=== PATIENT | male | born 1945 | race Caucasian/White ===

== ENCOUNTER 2017-12-10 07:53 | Day surgery (SDC) | payer OTHER ==
[~2017-12-10 07:53] MED LIST: SODIUM CHLORIDE 0.9% 1000ML 1,000 ML IV ONE
[2017-12-10] MEDS ORDERED: PROPOFOL 10 MG/ML 20ML VIAL IV ONE ×2 (10:28)
[2017-12-10] MEDS ORDERED: FURO-152 PO (10:35)
[2017-12-10] MEDS ORDERED: ISOS10TA8 PO (10:35)
[2017-12-10] MEDS ORDERED: METF-526 PO (10:35)
[2017-12-10] MEDS ORDERED: LOSA50TA37 PO (10:35)
[2017-12-10] MEDS ORDERED: SUCR1TAB2 PO (10:35)
[2017-12-10] MEDS ORDERED: GABA-531 PO (10:35)
[2017-12-10] MEDS ORDERED: DEXL60CA3 PO (10:35)
[2017-12-10] MEDS ORDERED: PRAS10TA9 PO (10:35)
[2017-12-10] MEDS ORDERED: [UNRECOGNIZED DRUG - CODE] PO (10:35)
[2017-12-10] MEDS ORDERED: ALPR0.5T8 PO (10:35)
[2017-12-10] MEDS ORDERED: OMEG-53 PO (10:35)
[2017-12-10] MEDS ORDERED: METO-408 PO (10:35)
== END 2017-12-10 11:34 | disposition home or self-care (01) ==
LOC: DAH 07:53 → ENDO 07:53
PROVIDERS: ATTEND Internal Medicine
DX: K31.89 Other diseases of stomach and duodenum (principal); I10 Essential (primary) hypertension; E78.5 Hyperlipidemia, unspecified; I25.10 Atherosclerotic heart disease of native coronary artery without angina pectoris; F41.9 Anxiety disorder, unspecified; F32.9 Major depressive disorder, single episode, unspecified; E11.9 Type 2 diabetes mellitus without complications; K21.9 Gastro-esophageal reflux disease without esophagitis; Z90.49 Acquired absence of other specified parts of digestive tract; Z79.899 Other long term (current) drug therapy; Z98.890 Other specified postprocedural states; Z85.828 Personal history of other malignant neoplasm of skin; Z86.010 Personal history of colon polyps
CPT/HCPCS: 43235; 82948; 91035; 93005; A4606; A4649; J2704 ×2; J7030

== ENCOUNTER → 2021-01-03 | Outpatient (CLI) | payer MEDICARE ==
[~2021-01-03] MED LIST changes: +ALPR0.5T8 PO; +DEXL60CA3 PO; +FURO-152 PO; +GABA-531 PO; +ISOS10TA8 PO; +LOSA50TA64 PO; +METF-526 PO; +METO-408 PO; +MISO100T42 PO; +OMEG-53 PO; +PRAS10TA9 PO; -SODIUM CHLORIDE 0.9% 1000ML 1,000 ML IV ONE; +SUCR1TAB2 PO
[2021-01-03 12:14] LABS: BASOPHILS % (AUTO) 1.1 % (0.0-5.0); EOSINOPHILS % (AUTO) 2.5 % (0.0-8.0); HEMATOCRIT 44.4 % (42-54); LYMPHOCYTES % (AUTO) 18.4 % (21.0-51.0); MEAN CORPUSCULAR HEMOGLOBIN 27.3 pg (27.0-33.0); MEAN CORPUSCULAR VOLUME 85.2 fL (79-99); MONOCYTES % (AUTO) 8.3 % (3.0-13.0); NEUTROPHILS % (AUTO) 69.4 % (40.0-77.0); PLATELET COUNT (AUTO) 212 K/uL (130-400); RED BLOOD CELL COUNT(AUTO) 5.21 MIL/uL (4.50-6.20); RED CELL DISTRIBUTION WIDTH 14.3 % (11.0-15.5)
[2021-01-03 12:21] LABS: CREATININE 1.1 mg/dL (0.5-1.5); POTASSIUM 4.6 mmol/L (3.5-5.1)
== END | disposition home or self-care (01) ==
LOC: LAB 11:31
PROVIDERS: ATTEND Urology
DX: R97.20 Elevated prostate specific antigen [PSA] (principal); R31.0 Gross hematuria
CPT/HCPCS: 36415; 80048; 84153; 84154; 85025

== ENCOUNTER → 2021-01-10 | Outpatient (CLI) | payer MEDICARE ==
[~2021-01-10] MED LIST changes: +IOHEXOL 350 MG/ML 100ML INFUS..BTL IV ONE
== END | disposition home or self-care (01) ==
LOC: RAH 08:55
PROVIDERS: ATTEND Urology
DX: N28.1 Cyst of kidney, acquired (principal)
CPT/HCPCS: 74178; Q9967